=== PATIENT | female | born 1970 | race Caucasian/White ===

== ENCOUNTER 2020-01-03 10:40 | Emergency (ER) | payer OTHER ==
[2020-01-03 10:53] VITALS: BP 132/87; PULSE 81; TEMP 98; BMI 28.8
[2020-01-03] MEDS ORDERED: IBUPROFEN 600 MG TABLET (FP) PO ONE ×2 (11:27→11:29)
[2020-01-03] MEDS ORDERED: CYCLOBENZAPRINE HCL 10 MG TABLET (FP) PO ONE (11:27)
[2020-01-03] MEDS ORDERED: CYCLOBENZAPRINE HCL 10 MG TABLET (FP) ONE (11:29)
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
== END 2020-01-03 12:45 | disposition home or self-care (01) ==
LOC: JER 10:40
DX: S13.4XXA Sprain of ligaments of cervical spine, initial encounter (principal); M62.838 Other muscle spasm; V49.49XA Driver injured in collision with other motor vehicles in traffic accident, initial encounter; Y92.414 Local residential or business street as the place of occurrence of the external cause; Y93.89 Activity, other specified; Y99.8 Other external cause status
CPT/HCPCS: 72040-TC; 99283-25

== ENCOUNTER 2023-04-05 17:42 | Emergency (ER) | payer OTHER ==
[2023-04-05 17:47] VITALS: BP 171/91; PULSE 92; RESP 18; TEMP 98; BMI 30.9
[2023-04-05] MEDS ORDERED: ACETAMINOPHEN 1000 MG/100 ML BAG IVPB ONE (19:00)
[2023-04-05] MEDS ORDERED: ACETAMINOPHEN INJECTION 100 ML IVPB ONE (19:56)
[2023-04-05 20:04] LABS: BASO % 1.1 % (0-2.0); EOS % 3.1 % (0-4.5); HEMATOCRIT 39.1 % (32.4-45.2); HEMOGLOBIN 13.4 GM/dL (10.7-15.3); MCH 29.6 pg (25.7-33.7); MCHC 34.4 g/dl (32.0-36.0); MEAN PLT VOLUME 7.9 fl (7.5-11.1); MONO % 8.3 % (3.8-10.2); NEUT % 55.5 % (42.8-82.8); PLATELET COUNT 339 10^3/uL (134-434); RBC 4.55 M/mm3 (3.60-5.2); RDW 13.8 % (11.6-15.6); WHITE BLOOD COUNT 7.4 K/mm3 (4.0-10.0)
[2023-04-05 20:16] LABS: POTASSIUM 4.1 mmol/L (3.5-5.1)
[2023-04-05 20:18] LABS: CALCIUM 9.1 mg/dL (8.5-10.1)
[2023-04-05 20:19] LABS: BLOOD UREA NITROGEN 14.9 mg/dL (7-18); MAGNESIUM 2.4 mg/dL (1.8-2.4)
[2023-04-05 20:21] LABS: ACTIVATED PTT 37.9 SECONDS (25.2-36.5); INR 1.03 (0.83-1.09)
[2023-04-05 20:22] LABS: CREATININE 0.9 mg/dL (0.55-1.3)
[2023-04-05 20:23] LABS: BILIRUBIN,TOTAL 0.2 mg/dL (0.2-1); TOT PROT 7.8 g/dl (6.4-8.2)
[2023-04-05] MEDS ORDERED: IBUPROFEN 600 MG TABLET (FP) PO ONE (21:51)
[2023-04-05] MEDS ORDERED: IBUPROFEN 400 MG TABLET (FP) PO ONE (22:07)
== END 2023-04-05 22:21 | disposition home or self-care (01) ==
LOC: JER 17:42
PROC: 3E033NZ Introduction of Analgesics, Hypnotics, Sedatives into Peripheral Vein, Percutaneous Approach (ICD-10-PCS; principal; 2023-04-05)
DX: R07.89 Other chest pain (principal); M62.838 Other muscle spasm; M79.10 Myalgia, unspecified site; Z20.822 Contact with and (suspected) exposure to COVID-19
CPT/HCPCS: 0241U-QW; 36415; 71046-TC-FY; 80053; 83735; 84484; 84703; 85025; 85610; 85730; 93005; 93010; 99285-25